=== PATIENT | male | born 2000 | race Caucasian/White ===

== ENCOUNTER 2020-11-11 19:08 | Emergency (ER) | payer OTHER ==
[~2020-11-11 19:08] MED LIST: AMOXICILLIN500 M1 PO; FLORASTOR250 MG PO; IBUPROFEN600 MG PO; KEFLEX CAP 500500 MG PO; ZOFRAN ODT 4 MG4 MG SL
[2020-11-11] MEDS ORDERED: IBUPROFEN800 MG PO (21:19)
[2020-11-11] MEDS ORDERED: AZITHROMYCIN500 MG PO (21:19)
== END 2020-11-11 21:30 | disposition home or self-care (01) ==
LOC: ER1 19:08
DX: H66.92 Otitis media, unspecified, left ear (principal); J03.90 Acute tonsillitis, unspecified; F17.290 Nicotine dependence, other tobacco product, uncomplicated
CPT/HCPCS: 87081; 87880; 99283

== ENCOUNTER 2021-08-04 16:50 | Emergency (ER) | payer OTHER ==
[~2021-08-04 16:50] MED LIST changes: +AZITHROMYCIN500 MG PO; +IBUPROFEN800 MG PO
[2021-08-04 18:29] LABS: HEMOGLOBIN 16.4 gm/dl (14.0-17.5); RED BLOOD COUNT 4.86 M/UL (4.20-5.50); WHITE BLOOD COUNT 15.3 K/UL (4.5-11.0)
[2021-08-04 20:00] LABS: BUN/CREATININE RATIO 14 (0-10)
[2021-08-04] MEDS ORDERED: ZOFRAN 4 MG TAB4 MG PO (20:08)
== END 2021-08-04 20:30 | disposition home or self-care (01) ==
LOC: ER1 16:50
PROVIDERS: Physician Assistant
DX: E86.0 Dehydration (principal); D72.829 Elevated white blood cell count, unspecified; R19.7 Diarrhea, unspecified; R11.2 Nausea with vomiting, unspecified; Z20.822 Contact with and (suspected) exposure to COVID-19; F17.290 Nicotine dependence, other tobacco product, uncomplicated
CPT/HCPCS: 0240U; 71045; 80053; 81001; 83605; 83690; 85025; 85652; 86140; 87040; 93005; 96374; 99284; J2405; Q9967

== ENCOUNTER → 2021-11-06 | Outpatient (CLI) | payer OTHER ==
[~2021-11-06] MED LIST changes: +ZOFRAN 4 MG TAB4 MG PO
== END ==
LOC: EXRD 13:19
DX: M25.531 Pain in right wrist (principal)
CPT/HCPCS: 73110